=== PATIENT | female | born 1960 | race Caucasian/White ===

== ENCOUNTER → 2016-03-22 | Outpatient (CLI) | payer OTHER | LOC: MOB LAB 16:04 | PROVIDERS: ATTEND Nurse Practitioner Family | DX: G60.8 Other hereditary and idiopathic neuropathies (principal) | CPT/HCPCS: 36415; 82607 ==

== ENCOUNTER → 2016-04-01 | Outpatient (CLI) | payer OTHER | LOC: LAB 15:57 | PROVIDERS: ATTEND Nurse Practitioner Family | DX: G60.9 Hereditary and idiopathic neuropathy, unspecified (principal) | CPT/HCPCS: 82746 ==